=== PATIENT | female | born 1960 | race Caucasian/White ===

== ENCOUNTER → 2017-03-05 | Outpatient (CLI) | payer OTHER ==
[~2017-03-05] MED LIST: AMLO5TAB2 PO; ATEN50TA PO; CALC-656 PO; HYDR-34 PO; MULT-608 PO; NFAMINITAB PO; OMEG1CAP51 PO
--- NOTE | 2017-03-06 10:06 | Diagnostic Imaging Report ---
Bilateral screening mammogram. The current study was also evaluated with a Computer Aided Detection (CAD) system. INDICATION: Screening. No current complaints stated on the questionnaire. COMPARISON: 07/10/2015. FINDINGS: The breasts are composed of scattered fibroglandular densities. There are scattered benign-appearing calcifications. Allowing for technique and positional differences, no suspicious change is seen. IMPRESSION: No significant change. ACR BI-RADS Category 2: Benign findings. Result letter will be mailed to the patient. Note: At least 10% of breast cancer is not imaged by mammography. Dictated by: Dictated on workstation # [id number]
== END ==
LOC: RAD 10:10
PROVIDERS: ATTEND Internal Medicine
DX: Z12.31 Encounter for screening mammogram for malignant neoplasm of breast (principal)
CPT/HCPCS: 77067

== ENCOUNTER 2018-03-31 15:30 | Outpatient (RCR) | payer OTHER | END 2018-03-31 16:24 | disposition home or self-care (01) | PROVIDERS: ATTEND Neurological Surgery | DX: Z47.89 Encounter for other orthopedic aftercare (principal); M54.5 Low back pain ==

== ENCOUNTER 2019-08-04 05:35 | Outpatient (CLI) | payer OTHER ==
[~2019-08-04] VITALS: Ht 162.5 cm; Wt 96.3 kg
[2019-08-04] MEDS ORDERED: AMLO1CAP4 PO (11:50)
[2019-08-04] MEDS ORDERED: ATEN50TA PO (11:50)
[2019-08-04] MEDS ORDERED: ATOR20TA66 PO (11:50)
== END 2019-08-04 12:16 | disposition home or self-care (01) ==
LOC: PREOP 05:35
PROVIDERS: ATTEND Surgery
DX: Z01.818 Encounter for other preprocedural examination (principal)

== ENCOUNTER 2019-08-05 09:59 | Day surgery (SDC) | payer OTHER ==
--- NOTE | 2019-08-02 16:56 | HISTORY AND PHYSICAL ---
DATE OF SERVICE: DATE OF ADMISSION: 08/05/2019. ADMITTING PRIMARY CARE PHYSICIAN: Dr. Oz Arciniega at [facility]. HISTORY OF PRESENT ILLNESS: The patient is a 58-year-old female in need of a screening colonoscopy. She has not had a colonoscopy up to this point in her life. She states that she is otherwise doing well, does not report any major issues with diarrhea nor constipation as well as no red blood per rectum nor any dark tarry stools. She also does not report any family history of colon cancer. PAST MEDICAL HISTORY: Degenerative joint disease, hypertension, mild hypercholesterolemia. PAST SURGICAL HISTORY: Tonsillectomy, right breast biopsy x2, which were benign, tubal ligation, open total hysterectomy, left knee arthroscopy, lumbar laminectomy in 1985 and 2018, x2. ALLERGIES: PENICILLIN. MEDICATIONS: 1. Atenolol 50 mg daily. 2. Atorvastatin 20 mg daily. 3. Lotrel 10 mg daily. SOCIAL HISTORY: Negative smoke, negative alcohol. FAMILY HISTORY: Father with Parkinson's disease and hypertension. Sister with non-Hodgkin's lymphoma and atrial fibrillation. Mother with some form of cardiac arrhythmia. REVIEW OF SYSTEMS: Well-nourished female, in no acute distress. She is not experiencing any shortness of breath or difficulty breathing. No chest pain, palpitations or diaphoresis. No nausea or vomiting. No diarrhea or constipation. No red blood per rectum. No dark tarry stools. No fever or chills. No recent inadvertent weight loss. All other review of systems are negative. PHYSICAL EXAMINATION: VITAL SIGNS: Stable, afebrile. CHEST: Clear. Good breath sounds bilaterally. HEART: Regular, no murmurs. EXTREMITIES: No lower extremity edema. Negative Homans sign. HEENT: No scleral icterus. NECK: No cervical lymphadenopathy. ABDOMEN: Soft, nontender and nondistended. SKIN: Warm and dry. ASSESSMENT AND PLAN: A 58-year-old female in need of screening colonoscopy. Risks and benefits of the procedure were explained to the patient and she is in full understanding and would like to proceed with a colonoscopy, which we will schedule. Job ID: [id number] DocumentID: [id number] Dictated Date: 08/02/2019 16:41:06 Audiology Technician Date: 08/02/2019 16:55:25 Dictated By: MARIA DOLORES SUNSHINE MD
[2019-08-05] VITALS (8 sets, daily range): BP systolic 95–149; BP diastolic 51–96
[~2019-08-05 09:59] MED LIST changes: +AMLO1CAP4 PO; +ATOR20TA66 PO
[2019-08-05] MEDS ORDERED: LACTATED RINGERS 1,000 ML IV ONE (10:06)
[2019-08-05] MEDS ORDERED: LACTATED RINGERS 1,000 ML IV STA (10:42)
[2019-08-05] MEDS ORDERED: LIDOCAINE JELLY 2% 6 ML SYRINGE MM PRN (10:45)
[2019-08-05] MEDS ORDERED: PROPOFOL INJECTION 0 ML IV ONE (10:58)
[2019-08-05] MEDS ORDERED: LIDOCAINE/EPI 1%-1:100,000 (XYLOCAINE) 20ML INJ ONE (11:00)
[2019-08-05] MEDS ORDERED: LIDOCAINE PF 2% 5 ML (XYLOCAINE) VIAL ONE (11:04)
--- NOTE | 2019-08-05 11:11 | Progress Note-Pre Operative ---
Pre-Operative Progress Note H&P Reviewed The H&P was reviewed, patient examined and no changes noted. Date Seen by Provider: Aug 05, 2019 Time Seen by Provider: 10:30 Date H&P Reviewed: Aug 05, 2019 Time H&P Reviewed: 10:30 Pre-Operative Diagnosis: screening colonoscopy, sx lesion lt nose and upper lip MARIA DOLORES SUNSHINE MD Aug 05, 2019 11:11
[2019-08-05] MEDS ORDERED: ONDANSETRON 4 MG/2 ML (SDV) Z0FRAN IVP PRN (11:15)
[2019-08-05] MEDS ORDERED: ACETAMINOPHEN 325 MG TABLET PO PRN (11:15)
[2019-08-05] MEDS ORDERED: HYDROcodone/APAP 5 MG/325 MG (LORTAB) TAB PO PRN (11:15)
[2019-08-05] MEDS ORDERED: morphine INJ 10 MG/ML 1ML (SYR OR VIAL) IVP PRN ×2 (11:15)
[2019-08-05] MEDS ORDERED: PROPOFOL INJECTION 50 ML IV ONE (11:26)
[2019-08-05] MEDS ORDERED: LIDOCAINE JELLY 2% 6 ML SYRINGE ONE (11:30)
--- NOTE | 2019-08-05 12:14 | Progress Note-Post Operative ---
Post-Operative Progess Note Surgeon (s)/Sergeant At Arms (s) Surgeon MARIA DOLORES SUNSHINE MD Sergeant At Arms: none Pre-Operative Diagnosis screening colonoscopy, sx lesion lt nose and upper lip Post-Operative Diagnosis chronic stage 2 ext and int hemorrhoids, benign lt cheek hemangioma(2mm), benign lt upper lip sebaceous cyst(3mm). Procedure & Operative Findings Date of Procedure 08/05/19 Procedure Performed/Findings colonoscopy. excision lesion lt cheek(2mm), lt upper lip(3mm) Anesthesia Type mac with local Estimated Blood Loss Estimated blood loss (mL): minimal Specimens/Packing Specimens Removed none MARIA DOLORES SUNSHINE MD Aug 05, 2019 12:14
--- NOTE | 2019-08-05 12:15 | Discharge Inst-Surgical ---
D/C Lap Instructions-BITA Follow Up PRN Activity as tolerated High Fiber Diet 25g or more per day Avoid Alcohol, Caffeine, Spicy [place] and Acid foods. Drink 64 fluid oz or more of fluids per day. Symptoms to Report: Fever over 101 degree F, Nausea/Vomiting If any problems/questions: Contact your physician or go to Emergency Room MARIA DOLORES SUNSHINE MD Aug 05, 2019 12:15
--- NOTE | 2019-08-05 14:48 | Anesthesia-General Post-Op ---
MAC Patient Condition Mental Status/LOC: Same as Preop Cardiovascular: Satisfactory Nausea/Vomiting: Absent Respiratory: Satisfactory Pain: Controlled Complications: Absent Post Op Complications Complications None Follow Up Care/Instructions Patient Instructions None needed. Anesthesiology Discharge Order Discharge Order Patient is doing well, no complaints, stable vital signs, no apparent adverse anesthesia problems. No complications reported per nursing. ARUNA JESSICA CRNA Aug 05, 2019 14:48
--- NOTE | 2019-08-05 17:37 | OPERATIVE REPORT ---
DATE OF SERVICE: 08/05/2019 ATTENDING PRIMARY CAMERA MACHINIST: Ariel Arciniega APRN at [facility] in [place]. PREOPERATIVE DIAGNOSES: 1. Screening colonoscopy. 2. Symptomatic lesion of the left medial cheek, left upper lip, both less than 3 mm in size. POSTOPERATIVE DIAGNOSES: Mild chronic stage II external and internal hemorrhoids, lesions of the face were benign. With the cheek lesion and hemangioma and the upper lip lesion, a sebaceous cyst. PROCEDURE: Colonoscopy, excision lesion left medial cheek, left upper lip, 2 to 3 mm in size. SURGEON: Maria Dolores Sunshine MD ANESTHESIA: Monitored anesthesia care with local. ESTIMATED BLOOD LOSS: Minimal. FINDINGS: Mild chronic stage II external and internal hemorrhoids, lesions of the face were benign. With the cheek lesion and hemangioma and the upper lip lesion, a sebaceous cyst. DISPOSITION: The patient tolerated the procedure well. INDICATIONS: The patient is a 58-year-old female in need of a screening colonoscopy. She has not had a colonoscopy up to this point in her life. She is otherwise doing well, does not report any major issues with diarrhea, no constipation as well as no red blood per rectum nor any dark tarry stools. She also does not have any family history of colon cancer. She also does have two symptomatic lesions of her face, which has been around for a few years and do cause irritation with her glasses. One is along the left medial cheek and this appears to be a benign hemangioma. She also does have a symptomatic lesion of the left upper lip just inferior to the nare, which is raised and small and again approximately 2 to 3 mm in size. DESCRIPTION OF PROCEDURE: The patient was brought to the endoscopy suite, left supine on the gurney. After adequate IV pain and sedative medications and monitored anesthesia care, the face was prepped and draped in standard surgical fashion. A 0.5% Marcaine with epinephrine was used to anesthetize the overlying skin to both of the lesions. The lesions were then fully excised using a 15 blade. Good hemostasis was achieved using direct pressure and the skin edges were approximated using 5-0 nylon interrupted sutures. The patient was then placed in left lateral decubitus position and a digital rectal examination was performed, which revealed mild chronic stage II external and internal hemorrhoids, not actively edematous nor inflamed and no bleeding. Normal sphincter tone was felt and there were no palpable masses. The endoscope was then intubated to the anus and rectum was gently insufflated. The endoscope was then advanced to the valves of [place] of the rectum with no polyps or any neoplasms identified. The endoscope was then advanced to the valves of [place] of the rectum with no polyps or any neoplasms identified. Through the sigmoid colon, no diverticulosis identified. The endoscope was then advanced to the remainder of the descending, transverse, ascending colon to the cecum, which were all normal with no polyps or any neoplasms identified throughout the entire colon or rectum. The endoscope was then slowly withdrawn while taking a second look and suctioning of residual air with no additional findings. The patient tolerated the procedure well. We will recommend medical management with a high fiber diet with 25 grams of fiber daily as well as significant amounts of water to promote soft stools on a daily basis. She does not need another colonoscopy for another 10 years. Job ID: [id number] DocumentID: [id number] Dictated Date: 08/05/2019 12:02:05 Tracer Bullet Charging Machine Operator Date: 08/05/2019 17:35:30 Dictated By: MARIA DOLORES SUNSHINE MD
== END 2019-08-05 12:40 | disposition home or self-care (01) ==
LOC: ENDO 09:59
PROVIDERS: ATTEND Surgery
DX: Z12.11 Encounter for screening for malignant neoplasm of colon (principal); K64.8 Other hemorrhoids; K64.1 Second degree hemorrhoids; L72.3 Sebaceous cyst; D18.01 Hemangioma of skin and subcutaneous tissue; I10 Essential (primary) hypertension; E78.00 Pure hypercholesterolemia, unspecified; G43.909 Migraine, unspecified, not intractable, without status migrainosus; Z90.710 Acquired absence of both cervix and uterus; Z88.0 Allergy status to penicillin; Z79.899 Other long term (current) drug therapy; Z82.49 Family history of ischemic heart disease and other diseases of the circulatory system; Z80.7 Family history of other malignant neoplasms of lymphoid, hematopoietic and related tissues

== ENCOUNTER → 2020-05-30 | Outpatient (CLI) | payer OTHER ==
--- NOTE | 2020-05-30 13:40 | Diagnostic Imaging Report ---
INDICATION: Routine screening. Comparison is made with prior mammogram from 03/05/2017 and 07/10/2015. 2-D and 3-D bilateral screening mammography was performed with CAD. Scattered fibroglandular densities are identified bilaterally. There are benign calcifications present. Overall parenchymal pattern appears to be stable. No mass or malignant-appearing microcalcifications are seen. Axillae are unremarkable. IMPRESSION: BI-RADS Category 2 No mammographic features suspicious for malignancy are identified. ACR BI-RADS Category 2: Benign findings. Result letter will be mailed to the patient. Note: At least 10% of breast cancer is not imaged by mammography. Dictated by: Dictated on workstation # [id number]
== END ==
LOC: RAD 09:38
PROVIDERS: ATTEND Family Medicine
DX: Z12.31 Encounter for screening mammogram for malignant neoplasm of breast (principal)
CPT/HCPCS: 77063; 77067

== ENCOUNTER → 2020-12-07 | Outpatient (CLI) | payer OTHER ==
[~2020-12-07] MED LIST changes: +BAMLANIVIMAB (NON FORM) 700 MG in NS (IVPB) 250 ML IV ONE; +EPINEPHrine INJECTION 1 MG/ML AMP IM PRN; +diphenhydrAMINE 50 MG/ML INJ (BENADRYL) IV PRN
[2020-12-07 12:10] VITALS: BP 155/95
[2020-12-07 14:01] VITALS: BP 153/78
== END ==
LOC: INFUSION 12:16
PROVIDERS: ATTEND Emergency Medicine
DX: U07.1 COVID-19 (principal)